=== PATIENT | female | born 1995 | race Caucasian/White ===

== ENCOUNTER 2018-02-19 02:22 | Outpatient (CLI) | payer OTHER, SELFPAY ==
[2018-02-20 11:34] LABS: Lyme Ab w Rflx to Lyme Confirm Negative
== END 2018-02-19 02:42 ==
PROVIDERS: Visit Provider Physician Assistant
DX: A26.0 Cutaneous erysipeloid (principal)
CPT/HCPCS: 36415; 86618

== ENCOUNTER 2018-03-07 12:23 | Outpatient (CLI) | payer OTHER, SELFPAY ==
[2018-03-10 15:42] LABS: Hemoglobin S Screen Neg (NEG)
== END 2018-03-07 12:43 ==
PROVIDERS: Visit Provider Physician Assistant
DX: Z13.0 Encounter for screening for diseases of the blood and blood-forming organs and certain disorders involving the immune mechanism (principal); Z02.5 Encounter for examination for participation in sport
CPT/HCPCS: 36415; 85660

== ENCOUNTER 2018-03-19 15:11 | Outpatient (CLI) | payer OTHER, SELFPAY ==
[2018-03-19 16:08] LABS: Abs Immature Grans 0.02 k/cumm (0.0-0.09); Absolute Basophil Count 0.03 k/cumm (0.0-0.2); Absolute Eosinophil Count 0.05 k/cumm (0.0-0.7); Absolute Lymphocyte Count 1.63 k/cumm (1.2-3.4); Absolute Monocyte Count 0.58 k/cumm (0.11-0.7); Basophils % 0.4; Eosinophils % 0.7; HCT 41.1 % (36.0-46.0); HGB 13.8 g/dL (12.0-15.5); Immature Grans % 0.3; Mean Corp. HGB Concentration 33.6 g/dL (32.0-36.0); Mean Corpuscular Hemoglobin 29.4 pg (27.0-33.0); Mean Corpuscular Volume 87.4 fL (80-95); Mean Platelet Volume 10.7 fL (8.0-11.0); Monocytes % 7.8; Neutrophils % 68.8; Platelet Count 246 x1000/uL (130-400); RBC Distribution Width 12.3 % (11.7-14.6); White Blood Cell Count 7.41 k/cumm (4.4-10.8)
[2018-03-19 16:19] LABS: Mono Screening Negative (Negative)
[2018-03-19 16:51] LABS: ESR 8 MM/HR (0-20)
[2018-03-19 17:18] LABS: Anion Gap 10.4 mmol/L (3-11); BUN 11 mg/dL (7-18); C-Reactive Protein 1.29 mg/dL (0.0-0.3); CO2 25.6 mmol/L (21.0-32.0); CREATININE 0.99 mg/dL (0.55-1.02); Calcium 9.4 mg/dL (8.5-10.1); Chloride 104 mmol/L (98-107); Glucose 95 mg/dL (70-100); Sodium 140 mmol/L (136-145)
[2018-03-20 11:25] LABS: Lyme Ab w Rflx to Lyme Confirm Negative
== END 2018-03-19 15:31 ==
PROVIDERS: Visit Provider Family Medicine
DX: R53.83 Other fatigue (principal); R21 Rash and other nonspecific skin eruption; M25.50 Pain in unspecified joint
CPT/HCPCS: 36415; 80048; 85652; 85025; 86140; 86308; 86618

== ENCOUNTER 2018-09-16 10:27 | Outpatient (CLI) | payer OTHER, SELFPAY ==
[2018-09-16 11:14] LABS: Abs Immature Grans 0.06 k/cumm (0.0-0.09); Absolute Basophil Count 0.06 k/cumm (0.0-0.2); Absolute Eosinophil Count 0.07 k/cumm (0.0-0.7); Absolute Monocyte Count 0.86 k/cumm (0.11-0.7); Absolute Neutrophil Count 6.01 k/cumm (1.2-6.7); Basophils % 0.6; Eosinophils % 0.7; HCT 46.2 % (36.0-46.0); HGB 15.6 g/dL (12.0-15.5); Immature Grans % 0.6; Lymphocytes % 24.6; Mean Corp. HGB Concentration 33.8 g/dL (32.0-36.0); Mean Corpuscular Hemoglobin 29.5 pg (27.0-33.0); Mean Corpuscular Volume 87.5 fL (80-95); Mean Platelet Volume 10.9 fL (8.0-11.0); Monocytes % 9.2; Neutrophils % 64.3; Platelet Count 257 x1000/uL (130-400); RBC 5.28 m/cumm (4.00-5.20); RBC Distribution Width 12.3 % (11.7-14.6); White Blood Cell Count 9.36 k/cumm (4.4-10.8)
[2018-09-16 11:49] LABS: ALT 39 U/L (12-78); AST 24 U/L (15-37); Albumin 3.8 g/dL (3.4-5.0); Alkaline Phosphatase 94 U/L (46-116); Anion Gap 7.7 mmol/L (3-11); BUN 13 mg/dL (7-18); Bilirubin, Total 0.3 mg/dL (0.2-1.0); CO2 30.3 mmol/L (21.0-32.0); CREATININE 0.97 mg/dL (0.55-1.02); Calcium 9.2 mg/dL (8.5-10.1); Chloride 102 mmol/L (98-107); Glucose 69 mg/dL (70-100); Potassium 4.3 mmol/L (3.5-5.1); Sodium 140 mmol/L (136-145); Total Protein 7.8 g/dL (6.4-8.2)
== END 2018-09-16 10:47 ==
PROVIDERS: Visit Provider Physician Assistant
DX: R19.7 Diarrhea, unspecified (principal)
CPT/HCPCS: 36415; 80053; 85025

== ENCOUNTER 2018-09-17 16:23 | Outpatient (REF) | payer OTHER, SELFPAY ==
[2018-09-18 12:20] LABS: Campylobacter PCR SEE COMMENTS; Salmonella PCR SEE COMMENTS; Shiga Toxin PCR SEE COMMENTS; Shigella/Enteroinvasive Ecoli SEE COMMENTS
== END 2018-09-17 16:43 ==
LOC: LBN 16:23
PROVIDERS: Visit Provider Physician Assistant
DX: R19.7 Diarrhea, unspecified (principal)
CPT/HCPCS: 87329; 87505; 83630; 87324

== ENCOUNTER 2020-09-13 02:06 | Outpatient (CLI) | payer MEDICAID, SELFPAY ==
[2020-09-13 21:50] LABS: Abs Immature Grans 0.03 10^3/uL (0.0-0.06); Absolute Basophil Count 0.04 10^3/uL (0.0-0.2); Absolute Eosinophil Count 0.03 10^3/uL (0.0-0.7); Absolute Lymphocyte Count 1.88 10^3/uL (1.2-3.4); Absolute Monocyte Count 0.56 10^3/uL (0.1-0.8); Basophils % 0.5; Eosinophils % 0.4; HGB 14.9 g/dL (11.2-15.7); Immature Grans % 0.4; Lymphocytes % 24.3; MCH 29.2 pg (27.0-33.0); MCHC 33.1 % (32.0-36.0); MCV 88.2 fL (80-95); MPV 11.1 fL (8.0-11.0); Monocytes % 7.2; Neutrophils % 67.2; Nucleated RBC 0 %; Platelet Count 308 10^3/uL (130-400); RDW 11.7 % (11.7-14.6); RDW-SD 37.7 fL; WBC 7.74 10^3/uL (4.4-10.8)
[2020-09-13 22:06] LABS: ALT 29 U/L (14-59); AST 17 U/L (15-37); Albumin 4.1 g/dL (3.4-5.0); Alkaline Phosphatase 75 U/L (46-116); Anion Gap 8.8 mmol/L (3-11); BUN 14 mg/dL (7-18); Bilirubin, Total 0.3 mg/dL (0.2-1.0); CO2 28.2 mmol/L (21.0-32.0); Calcium 9.6 mg/dL (8.5-10.1); Chloride 103 mmol/L (98-107); Glucose 94 mg/dL (74-106); Potassium 4.1 mmol/L (3.5-5.1); Sodium 140 mmol/L (136-145); Total Protein 7.7 g/dL (6.4-8.2)
--- NOTE | 2020-09-14 | DI.US_ITS ---
EXAM: US ABDOMEN CLINICAL HISTORY: ABD PAIN, R10.9 TECHNIQUE: Ultrasound of complete upper abdomen performed using standard protocol. COMPARISON: No exams were available for comparison FINDINGS: There is no ascites evident. LIVER: There are no hepatic lesions evident nor obvious dilatation of intrahepatic ducts. GALLBLADDER/BILIARY: There are no gallstones. No gallbladder wall edema nor pericholecystic fluid. The common hepatic duct isnot dilated, measuring 3-4mm at the level of jose hepatis. PANCREAS: There is no evidence of pancreatic mass nor dilatation of the pancreatic duct. SPLEEN: The spleen is not enlarged and there are no intrasplenic lesions evident. KIDNEYS:Kidneys exhibit normal size with no evidence of solid mass, calculus, nor hydronephrosis. No cortical cysts evident. ABDOMINAL AORTA: There is no evidence of abdominal aortic aneurysm. IVC: Normal diameter where visualized. IMPRESSION: 1. No evidence of cholelithiasis nor dilatation of the biliary tree. 2. No other significant ultrasound findings in the upper abdomen. 3. There is no ascites. DATA REPOSITORY:
[2020-09-14 10:43] LABS: Mono Screening Negative (Negative)
== END 2020-09-13 02:26 ==
PROVIDERS: Physician Assistant; Visit Provider Family Medicine
DX: R10.9 Unspecified abdominal pain (principal)
CPT/HCPCS: 80053; 76700; 85025; 86308